=== PATIENT | female | born 1960 | race Caucasian/White ===

== ENCOUNTER 2017-03-27 05:46 | Day surgery (SDC) | payer BC ==
[2017-03-27] MEDS ORDERED: DIPRIVAN 200 MG/20 ML IV ONE (05:47)
[2017-03-27] MEDS ORDERED: Versed 2 MG/2 ML Injection IV ONE (05:47)
[2017-03-27] MEDS ORDERED: Lactated Ringers 1,000 ML IV SCH (06:30)
--- NOTE | 2017-03-27 08:50 | OP ---
SURGERY DATE: 03/27/17 SURGERY TIME: 657 PREOPERATIVE DIAGNOSIS: 1. SCREENING COLONOSCOPY. POSTOPERATIVE DIAGNOSIS: 1. NORMAL COLON. PROCEDURE: 1. Colonoscopy. SURGEON: Dr. Og Egan. ANESTHESIA: MAC by Lopez Paul CRNA. SPECIMENS: None. ESTIMATED BLOOD LOSS: None. DESCRIPTION OF PROCEDURE: After informed written consent was obtained, the patient was taken to the endoscopy suite. She underwent monitored anesthesia and a digital rectal exam showed normal sphincter tone and no internal lesions. The scope was inserted into the rectum and sequentially the entire colonic mucosa was traversed. The level of the cecum was reached and verified with direct visualization of the ileocecal valve. Upon withdrawal, careful mucosal inspection revealed no gross mucosal abnormalities. Prep was noted to be fair. Prior to withdrawal, retroflexion was performed which was within normal limits. The scope was removed and the patient was transferred to the recovery room in good condition.
[2017-03-27 08:54] VITALS: BP 151/81; PULSE 64; O2SAT 99
== END 2017-03-27 08:30 | disposition home or self-care (01) ==
LOC: SDC 05:46
PROVIDERS: ATTEND Family Medicine
PROC: 0DJD8ZZ Inspection of Lower Intestinal Tract, Via Natural or Artificial Opening Endoscopic (ICD-10-PCS; principal; 2017-03-27)
DX: Z12.11 Encounter for screening for malignant neoplasm of colon (principal); I10 Essential (primary) hypertension; J45.909 Unspecified asthma, uncomplicated
CPT/HCPCS: 00810; J2250; J2704